=== PATIENT | female | born 1980 | race American Indian/Alaskan Native ===

== ENCOUNTER 2020-07-21 12:02 | Emergency (ER) | payer SELFPAY ==
[2020-07-21] MEDS ORDERED: dexAMETHasone 20 MG/5 ML VIAL IM ONE (12:41)
[2020-07-21] MEDS ORDERED: diphenhydrAMINE 25 MG CAP PO ONE (12:41)
[2020-07-21] MEDS ORDERED: IPRATROPIUM/ALBUTEROL SULFATE 3 ML AMPUL.NEB IH ONE (12:41)
--- NOTE | 2020-07-21 12:42 | Emergency Department Report ---
ED General Adult HPI - General Chief complaint: Dyspnea/Respdistress Stated complaint: SOB Time Seen by Provider: 07/21/20 12:38 Source: patient Mode of arrival: Ambulatory Limitations: No Limitations - History of Present Illness Initial comments: Patient is a 40-year-old female presents emergency room complaints of an asthma exacerbation that began this morning when she got off work. She states that she believes pollen was inside of her car. She has associated rhinorrhea, dry cough, sneezing, wheezing, shortness of breath. She denies any fever, productive cough, chest congestion, nausea, vomiting, diarrhea, hives, rash, facial swelling, difficulty swallowing. She states that she used 1 nebulizer treatment this morning. She denies any allergies to medications. - Related Data Previous Rx's Medication Instructions Recorded Last Taken Type Azithromycin [Zithromax Z-PATRICIA] 250 mg PO DAILY #6 tablet 03/10/14 Unknown Rx Codeine Phosphate/Guaifenesin 10 ml PO Q4-6H PRN #118 ml 03/10/14 Unknown Rx [Guaifenesin-Codeine Syrup] ALBUTEROL NEB's [Proventil 0.083% 2.5 mg IH TID PRN #1 box 07/21/20 Unknown Rx NEBS] Albuterol Mdi (or & Nicu Only) 2 puff IH QID PRN #1 inhalation 07/21/20 Unknown Rx [ProAir HFA Inhaler] Fluticasone [Flonase] 1 spray NS QDAY #1 bottle 07/21/20 Unknown Rx Loratadine 10 mg PO DAILY #14 tablet 07/21/20 Unknown Rx Prednisone [predniSONE 10 mg 10 mg PO .TAPER #1 tab.ds.pk 07/21/20 Unknown Rx (6-Day Pack, 21 Tabs)] Allergies Allergy/AdvReac Type Severity Reaction Status Date / Time Sulfa (Sulfonamide Allergy Unknown Verified 07/21/20 12:16 Antibiotics) ED Review of Systems ROS: Stated complaint: SOB Other details as noted in HPI Comment: All other systems reviewed and negative ED Past Medical Hx - Past Medical History Hx Asthma: Yes - Social History Smoking Status: Current Some Day Smoker Substance Use Type: None - Medications Home Medications: Home Medications Medication Instructions Recorded Confirmed Last Taken Type Azithromycin [Zithromax Z-PATRICIA] 250 mg PO DAILY #6 tablet 03/10/14 Unknown Rx Codeine Phosphate/Guaifenesin 10 ml PO Q4-6H PRN #118 ml 03/10/14 Unknown Rx [Guaifenesin-Codeine Syrup] ALBUTEROL NEB's [Proventil 0.083% 2.5 mg IH TID PRN #1 box 07/21/20 Unknown Rx NEBS] Albuterol Mdi (or & Nicu Only) 2 puff IH QID PRN #1 inhalation 07/21/20 Unknown Rx [ProAir HFA Inhaler] Fluticasone [Flonase] 1 spray NS QDAY #1 bottle 07/21/20 Unknown Rx Loratadine 10 mg PO DAILY #14 tablet 07/21/20 Unknown Rx Prednisone [predniSONE 10 mg 10 mg PO .TAPER #1 tab.ds.pk 07/21/20 Unknown Rx (6-Day Pack, 21 Tabs)] ED Physical Exam - General Limitations: No Limitations General appearance: alert, in no apparent distress - Head Head exam: Present: atraumatic, normocephalic - Eye Eye exam: Present: normal appearance - ENT ENT exam: Present: mucous membranes moist, other (pale boggy turbinates with clear nasal drainage) - Respiratory Respiratory exam: Present: wheezes (very mild expiratory). Absent: respiratory distress, rales, rhonchi, stridor, chest wall tenderness, accessory muscle use, decreased breath sounds, prolonged expiratory - Cardiovascular Cardiovascular Exam: Present: regular rate, normal rhythm, normal heart sounds. Absent: systolic murmur, diastolic murmur, rubs, gallop - Neurological Exam Neurological exam: Present: alert, oriented X3 - Psychiatric Psychiatric exam: Present: normal affect, normal mood - Skin Skin exam: Present: warm, dry, intact ED Course Vital Signs 07/21/20 07/21/20 12:16 14:03 Temperature 98.5 F Pulse Rate 83 74 Respiratory 24 18 Rate Blood Pressure 140/85 Blood Pressure 116/68 [Left] O2 Sat by Pulse 100 98 Oximetry ED Medical Decision Making - Medical Decision Making Patient is a 40-year-old female presents emergency room complaints of an asthma exacerbation that began this morning when she got off work. She states that she believes pollen was inside of her car. She has associated rhinorrhea, dry cough, sneezing, wheezing, shortness of breath. She denies any fever, productive cough, chest congestion, nausea, vomiting, diarrhea, hives, rash, facial swelling, difficulty swallowing. She states that she used 1 nebulizer treatment this morning. She denies any allergies to medications. Vitals are normal. On exam: pale boggy turbinates with clear nasal drainage, very mild expiratory. Symptoms likely related to allergies and asthma. Patient given medications while in the emergency department and symptoms significantly improved and she was feeling much better when to go home. On reexam patient has no wheezing and good air movement. Patient has no clinical signs of bacterial pneumonia or bacterial bronchitis. Advised patient Please take medication as prescribed. Increase your fluid intake. Follow-up with your primary care doctor. Return to emergency room for new or worsening symptoms. Critical care attestation.: If time is entered above; I have spent that time in minutes in the direct care of this critically ill patient, excluding procedure time. ED Disposition Clinical Impression: Asthma exacerbation Qualifiers: Asthma severity: unspecified severity Asthma persistence: unspecified Qualified Code(s): J45.901 - Unspecified asthma with (acute) exacerbation Allergies Qualifiers: Encounter type: initial encounter Qualified Code(s): T78.40XA - Allergy, unspecified, initial encounter Disposition: DC- TO HOME OR SELFCARE Is pt being admited?: No Does the pt Need Aspirin: No Condition: Stable Instructions: Asthma, Adult, Allergies, Adult, [id number] Additional Instructions: Please take medication as prescribed. Increase your fluid intake. Follow-up with your primary care doctor. Return to emergency room for new or worsening symptoms. Prescriptions: Fluticasone [Flonase] 1 spray NS QDAY #1 bottle Loratadine 10 mg PO DAILY #14 tablet Prednisone [predniSONE 10 mg (6-Day Pack, 21 Tabs)] 10 mg PO .TAPER #1 tab.ds.pk Albuterol Mdi (or & Nicu Only) [ProAir HFA Inhaler] 2 puff IH QID PRN #1 inhalation PRN Reason: Shortness Of Breath ALBUTEROL NEB's [Proventil 0.083% NEBS] 2.5 mg IH TID PRN #1 box PRN Reason: Wheezing Referrals: your, primary care doctor [Other] - 2-3 Days Forms: Work/School Release Form(ED) Time of Disposition: 13:56 Print Language: THAI
[2020-07-21 14:05] VITALS: BP 116/68
== END 2020-07-21 14:28 | disposition home or self-care (01) ==
LOC: ED 12:02
DX: J45.901 Unspecified asthma with (acute) exacerbation (principal); T78.40XA Allergy, unspecified, initial encounter; F17.200 Nicotine dependence, unspecified, uncomplicated; Z79.899 Other long term (current) drug therapy
CPT/HCPCS: 94640; 96372; 99282; J1100